=== PATIENT | male | born 1975 | race Caucasian/White ===

== ENCOUNTER 2025-08-18 20:52 | Emergency (ER) | payer SELFPAY ==
[~2025-08-18] VITALS: Ht 167.6 cm; Wt 72.0 kg
[2025-08-18 21:13] VITALS: TEMP 98.9; O2SAT 100
[2025-08-18] MEDS: LIDOCAINE HCL 1% 20ML VIAL INFIL ONE (22:45)
[2025-08-18] MEDS: ACETAMINOPHEN 500MG TABLET PO ONE (23:46)
[2025-08-18] MEDS: TETANUS, DIPHTHERIA, PERTUSSIS VAC/PF 0.5ML (>10YR OLD) IM ONE (23:51)
[2025-08-19] MEDS ORDERED: BO1 TP (02:09)
[2025-08-19 02:38] VITALS: BP 113/90; PULSE 79; RESP 16; O2SAT 99
== END 2025-08-19 02:39 | disposition home or self-care (01) ==
LOC: ER 20:52
DX: S01.01XA Laceration without foreign body of scalp, initial encounter (principal); M21.20 Flexion deformity, unspecified site; R51.9 Headache, unspecified; Y08.89XA Assault by other specified means, initial encounter; Y93.89 Activity, other specified; Y92.89 Other specified places as the place of occurrence of the external cause; Y99.8 Other external cause status
CPT/HCPCS: 99285; 70450; 90715; 12002; 90471; 73130; J2003

== ENCOUNTER 2025-08-29 14:25 | Emergency (ER) | payer SELFPAY ==
[~2025-08-29] VITALS: Ht 162.6 cm; Wt 60.0 kg
[~2025-08-29 14:25] MED LIST: BO1 TP
[2025-08-29 14:27] VITALS: O2SAT 100
[2025-08-29 14:48] VITALS: BP 105/74; PULSE 75; RESP 16; TEMP 36.7; O2SAT 99
== END 2025-08-29 15:02 | disposition home or self-care (01) ==
LOC: ER 14:25
DX: S01.01XD Laceration without foreign body of scalp, subsequent encounter (principal); X58.XXXD Exposure to other specified factors, subsequent encounter
CPT/HCPCS: 99282